=== PATIENT | female | born 1970 | race African-American/Black ===

== ENCOUNTER 2017-03-14 17:11 | Emergency (ER) | payer OTHER ==
[~2017-03-14] VITALS: Ht 172.7 cm; Wt 119.5 kg
[2017-03-14 17:18] VITALS: Ht 172.7 cm; Wt 119.5 kg
[2017-03-14] MEDS ORDERED: CYCL5TAB PO (18:07)
[2017-03-14] MEDS ORDERED: IBUP-1542 PO (18:07)
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
== END 2017-03-14 18:42 | disposition home or self-care (01) ==
LOC: FTE 17:11
DX: S39.012A Strain of muscle, fascia and tendon of lower back, initial encounter (principal); I10 Essential (primary) hypertension; V49.50XA Passenger injured in collision with unspecified motor vehicles in traffic accident, initial encounter
CPT/HCPCS: 99283